=== PATIENT | male | born 1990 | race Two or more races ===

== ENCOUNTER 2017-05-08 18:38 | Emergency (ER) | payer SELFPAY ==
[2017-05-08] MEDS ORDERED: CLINDAMYCIN 600 MG/D5W RTU 600 MG/50 ML RTUPB IV ONE (19:25)
[2017-05-08 20:01] LABS: ABSOLUTE BASOPHILS # (AUTO) 0.1 10^3/uL (0.0-0.2); ABSOLUTE EOSINOPHILS # (AUTO) 0.1 10^3/uL (0.0-0.6); ABSOLUTE LYMPHOCYTES (AUTO) 3.5 10^3/uL (0.5-4.7); ABSOLUTE MONOCYTES (AUTO) 1.5 10^3/uL (0.1-1.4); ABSOLUTE NEUT (AUTO) 8.4 10^3/uL (1.7-8.2); BASOPHILS % (AUTO) 0.7 % (0-2); HEMATOCRIT 43.2 % (37.9-51.0); HEMOGLOBIN 14.5 g/dL (13.5-17.0); HGB HCT DIFFERENCE 0.3; LYMPHOCYTES % (AUTO) 25.6 % (13-45); MEAN CORPUSCULAR HEMOGLOBIN 30.2 pg (27.0-33.4); MEAN CORPUSCULAR HGB CONC 33.6 g/dL (32.0-36.0); MEAN CORPUSCULAR VOLUME 90 fl (80-97); MONOCYTES % (AUTO) 10.9 % (3-13); RED BLOOD COUNT 4.82 10^6/uL (4.35-5.55); RED CELL DISTRIBUTION WIDTH 13.7 % (11.5-14.0); SEGMENTED NEUTROPHILS % (AUTO) 61.8 % (42-78); WHITE BLOOD COUNT 13.5 10^3/uL (4.0-10.5)
--- NOTE | 2017-05-08 22:55 | ER Document Report ---
ED General - General Chief Complaint: Abscess Stated Complaint: SKIN ISSUES Time Seen by Provider: 05/08/17 18:59 TRAVEL OUTSIDE OF THE [place] IN LAST 30 DAYS: No - Related Data Allergies/Adverse Reactions: Penicillins Allergy (Intermediate, Verified 05/08/17 18:39) Past Medical History - Social History Smoking Status: Current Every Day Smoker Chew tobacco use (# tins/day): No Frequency of alcohol use: Social Drug Abuse: None Family History: Reviewed & Not Pertinent Patient has suicidal ideation: No Patient has homicidal ideation: No Renal/ Medical History: Denies: Hx Peritoneal Dialysis Past Surgical History: Reports: Hx Appendectomy - Immunizations Immunizations up to date: Yes Hx Diphtheria, Pertussis, Tetanus Vaccination: No Physical Exam - Vital signs Vitals: Temp Pulse Resp BP Pulse Ox 99.7 F 100 17 148/82 H 100 05/08/17 18:42 05/08/17 18:42 05/08/17 18:42 05/08/17 18:42 05/08/17 18:42 Course - Vital Signs Vital signs: Temp Pulse Resp BP Pulse Ox 99.7 F 100 17 148/82 H 100 05/08/17 18:42 05/08/17 18:42 05/08/17 18:42 05/08/17 18:42 05/08/17 18:42 - Laboratory Result Diagrams: 05/08/17 19:48 Laboratory results interpreted by me: 05/08/17 19:48 WBC 13.5 H Absolute Neutrophils 8.4 H Absolute Monocytes 1.5 H Discharge - Discharge Clinical Impression: Abscess, groin Condition: Good Disposition: HOME, SELF-CARE Instructions: Abscess ([facility]), Cephalexin ([facility]), MRSA Cellulitis ([facility]), Oral Narcotic Medication ([facility]), Post Incision and Drainage Additional Instructions: Home and rest. Medication as prescribed. As of indicated to we will place you on 2 antibiotics orally the clindamycin and the Keflex. Take these until complete. Given you have a history of these abscesses and given that the one is draining currently on its own in the left lower posterior groin and we did not have to cut it open I want to recheck you again in 48 hours. If he will return here within at 48 hour. Anywhere between 2 PM and 2 AM asked truong Kapoor I am the PA that saw you and we will take a look and see how we are doing. Continue to use moist compresses as we discussed and or also get the sitz bath insert we talked about the you can spread her cheeks and sit down into the clean warm water. If you have any concerns this is not healing correctly before that 40 hours is up please return sooner and let us take a look at it. As we discussed I have showed you the application for [employer] and the cheapest place we found with that application is [employer]. Prescriptions: Cephalexin Monohydrate [Keflex 500 mg Capsule] 500 mg PO QID #40 capsule Clindamycin HCl 300 mg PO Q6 #40 capsule Hydrocodone/Acetaminophen [[place] 7.5-325 Tablet] 1 each PO Q4 #10 tablet
[2017-05-08 23:09] VITALS: BP 162/95
== END 2017-05-08 23:09 | disposition home or self-care (01) ==
LOC: ER 18:38
DX: L02.214 Cutaneous abscess of groin (principal)
CPT/HCPCS: 99283; 96365; 36415; 87040; 87070; 87205; 85025; 87075; 87077; 87186; A6266

== ENCOUNTER 2017-10-19 21:13 | Emergency (ER) | payer SELFPAY ==
[2017-10-19] MEDS ORDERED: KETOROLAC TROMETHAMINE 60 MG/2 ML SDV IM ONE (22:59)
--- NOTE | 2017-10-19 22:59 | ER Document Report ---
ED Neck/Back Problem - General Chief Complaint: Back Pain Stated Complaint: BACK PAIN Time Seen by Provider: 10/19/17 22:53 Mode of Arrival: Ambulatory Information source: Patient TRAVEL OUTSIDE OF THE [place] IN LAST 30 DAYS: No - HPI Notes: 27-year-old male presents emergency department for evaluation of right-sided low back pain 2 days. 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 He denies any recent injury or trauma. He denies any dysuria or hematuria. He is also denies any weakness or numbness to extremities, bowel/bladder incontinence, or saddle paresthesias. Patient does report that pain sometimes shoots down his right leg. He denies any fevers , rashes, chest pain, shortness of breath, abdominal pain, nausea, vomiting, or diarrhea. - Related Data Allergies/Adverse Reactions: Penicillins Allergy (Intermediate, Verified 05/08/17 18:39) Past Medical History - General Information source: Patient - Social History Smoking Status: Current Every Day Smoker Chew tobacco use (# tins/day): No Frequency of alcohol use: None Drug Abuse: None Family History: Reviewed & Not Pertinent Patient has suicidal ideation: No Patient has homicidal ideation: No Renal/ Medical History: Denies: Hx Peritoneal Dialysis Past Surgical History: Reports: Hx Appendectomy - Immunizations Immunizations up to date: Yes Hx Diphtheria, Pertussis, Tetanus Vaccination: No Review of Systems - Review of Systems -: Yes All other systems reviewed and negative Physical Exam - Vital signs Vitals: Temp Pulse BP Pulse Ox 99.0 F 109 H 133/76 H 96 10/19/17 21:19 10/19/17 21:19 10/19/17 21:19 10/19/17 21:19 - Notes Notes: PHYSICAL EXAMINATION: GENERAL: Well-appearing, well-nourished and in no acute distress. HEAD: Atraumatic, normocephalic. ABDOMEN: Soft, nontender, nondistended abdomen. No guarding, no rebound. No masses appreciated. BACK: Generalized tenderness to the right lateral lumbar muscle with mild spasm. No midline or focal bony tenderness. Musculoskeletal: Bilateral lower extremities: Negative straight leg raise test. No tenderness. No calf tenderness or unilateral leg swelling. Strength 5\5 bilaterally. DTRs symmetric. Strong pedal pulse with brisk capillary refill. Light sensation intact. NEUROLOGICAL: Antalgic gait with normal balance, speech, and facial symmetry. PSYCH: Normal mood, normal affect. SKIN: Warm, Dry, normal turgor, no rashes or lesions noted. 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 No evidence of cauda equina symptoms, spinal abscess, or fracture. The likelihood of other entities in the differential is insufficient to justify any further testing for them. I discussed care plan at length with patient. Any and all questions were answered. Patient was given Toradol felt better. Discharged home with naproxen and Flexeril. Advised patient to follow-up with PCP and take medications as instructed. I also advised him to return immediately to the emergency department for any new, worsening, or concerning symptoms as discussed. He understands and agrees with plan. - Vital Signs Vital signs: Temp Pulse Resp BP Pulse Ox 99.0 F 109 H 133/76 H 96 10/19/17 21:19 10/19/17 21:19 10/19/17 21:19 10/19/17 21:19 Discharge - Discharge Clinical Impression: Muscle spasm Lumbar strain Qualifiers: Encounter type: initial encounter Qualified Code(s): S39.012A - Strain of muscle, fascia and tendon of lower back, initial encounter Condition: Good Disposition: HOME, SELF-CARE Instructions: Family Physicians / Practices, Low Back Pain ([facility]), Warm Packs ( [facility]) Additional Instructions: Follow-up with PCP and take medications as instructed. Return immediately to the emergency department for any new, worsening, or concerning symptoms as discussed. Prescriptions: Cyclobenzaprine HCl [Flexeril 10 mg Tablet] 10 mg PO TIDP PRN #15 tab PRN Reason: Naproxen 500 mg PO BID #20 tablet Forms: Return to Work
[2017-10-19 23:22] VITALS: BP 121/73
== END 2017-10-19 23:22 | disposition home or self-care (01) ==
LOC: ER 21:13
DX: S39.012A Strain of muscle, fascia and tendon of lower back, initial encounter (principal); M62.830 Muscle spasm of back; M54.9 Dorsalgia, unspecified; M79.604 Pain in right leg; X58.XXXA Exposure to other specified factors, initial encounter; F17.200 Nicotine dependence, unspecified, uncomplicated
CPT/HCPCS: 99283; 96372; J1885